=== PATIENT | male | born 1975 | race Caucasian/White ===

== ENCOUNTER 2018-12-23 21:51 | Emergency (ER) | payer SELFPAY ==
[~2018-12-23] VITALS: Ht 188 cm; Wt 97.5 kg
--- NOTE | 2018-12-23 21:51 | NUR ---
2151 - Patient to ER bed chair 1 to go for evaluation.
[2018-12-23 22:06] VITALS: BP_SYST 155
--- NOTE | 2018-12-23 23:00 | NUR ---
Pt presents to ED for OK to book. Pt denies complaints at this time. Skin pink dry and warm, breathing even and unlabored. Apple juice provided per request.
--- NOTE | 2018-12-23 23:03 | NUR ---
ER Dr. Garcia at bedside examining patient.
--- NOTE | 2018-12-23 23:15 | NUR ---
Patient given written and verbal discharge instructions and verbalizes understanding. ER MD Garcia discussed with patient the results and treatment provided. Patient in stable condition. ID arm band removed. No Rx given. Patient educated on pain management and to follow up with PMD. Pain Scale 0. Opportunity for questions provided and answered. Medication side effect fact sheet provided.
[2018-12-23 23:16] VITALS: BP_SYST 140
== END 2018-12-23 23:16 ==
LOC: SED 21:51
DX: F41.9 Anxiety disorder, unspecified (principal); K21.9 Gastro-esophageal reflux disease without esophagitis; R03.0 Elevated blood-pressure reading, without diagnosis of hypertension
CPT/HCPCS: 99283